=== PATIENT | female | born 1980 | race Caucasian/White ===

== ENCOUNTER 2016-10-15 22:35 | Emergency (ER) | payer SELFPAY ==
[~2016-10-15] VITALS: Ht 175.3 cm; Wt 99.8 kg
[~2016-10-15 22:35] MED LIST: ALPR2TAB2 PO
--- NOTE | 2016-10-15 22:49 | PHYS DOC ---
Past History Past Medical History: Bipolar, Other Past Surgical History: Cholecystectomy, Other Smoking: Greater than 1 pack/day Alcohol Use: Occasionally Drug Use: Marijuana Adult General HPI HPI Patient is a 36 year old F who presents with right shoulder, chest pain, head and neck pain. Patient states she woke up from a nap this afternoon and developed severe right shoulder pain with neck pain and chest pain. Patient called the nurse hotline who told to call emergency room due to her cardiac history. Patient states she's had a history of 2 heart attacks however has never had stents or bypass surgery. Patient does admit to smoking and hypertension. Patient denies any history of DVTs or PEs. Patient denies any fevers. Patient denies any nausea/vomiting/diarrhea. Patient has no other complaints. Review of Systems Review of Systems GEN: Denies fevers, chills, sweats HEENT: Neck pain CV: chest pain RESP: Denies shortness of air, cough GI: Denies n/v/d NEURO: Denies confusion, dizziness MSK: Right shoulder pain Allergies Allergies Allergies Coded Allergies Type Severity Reaction Last Updated Verified No Known Drug Allergies 01/23/15 No Physical Exam Physical Exam GEN.: No apparent distress. Alert and oriented. HEENT: Head is normocephalic, atraumatic NECK: Supple. LUNGS: CTAB. HEART: RRR, S1, S2 present. Peripheral pulses intact ABDOMEN: Soft, nontender. Positive bowel sounds. EXTREMITIES: Without any cyanosis, positive tender to palpation right shoulder with decreased range of motion secondary to pain NEUROLOGIC: Normal speech, normal tone PSYCHIATRIC: Normal affect, normal mood. SKIN: No ulcerations EKG EKG 2301: EKG shows normal sinus rhythm rate of 89 no STEMI [] Radiology/Procedures Radiology/Procedures Chest x-ray NAD X-ray right shoulder no obvious fracture CTA head and neck: IMPRESSION: No evidence of occlusion of the vertebral or carotid arteries. Limited exam secondary to contrast bolus timing with venous contamination. Limited assessment of intracranial vessels secondary to contrast bolus timing with venous contamination. Proximal MCA and AGNES appears patent. If there is clinical concern for stroke MRI could better evaluate given the limitations. There is some groundglass opacity and regions of air trapping within the bilateral lungs. The groundglass opacity could be from hypoventilatory changes although mild edema or pneumonitis is also possible. Electronically signed by: Rock Matthew MD (10/16/2016 12:54 AM) [facility] [] Course & Med Decision Making Course & Med Decision Making Pertinent Labs and Imaging studies reviewed. (See chart for details) ED course: Patient was seen and examined emergency room the cardiac workup was done along with a x-ray of the right shoulder and a CT angiogram of the head and neck 0003: On reexamination the patient is protecting with her right arm in no acute distress. Patient states her pain is gotten better. Updated patient on lab work and x-ray of the chest and shoulder. Awaiting CT results and if negative will discharge home. 0104: Updated patient on CT results who is ready to go home and stable for discharge. MDM: After reviewing the chart, CC/HPI/PMH, physical exam, [lab results], [ radiological results], I do not believe the patient has emergent medical condition warranting further workup and admission at this time. Do not believe the patient have an acute NH (HEART score 2), PE (Perc neg), and low clinical suspicion for acute thoracic aortic dissection. I believe the patient is stable for discharge and can follow up as an outpatient for further cardiac evaluation. Patient is comfortable this plan. Additional verbal discharge instructions were provided to the patient and that if symptoms get worse or any new symptoms arise that are worrisome to the patient she is to return to the emergency room immediately [] Dragon Disclaimer Dragon Disclaimer This chart was dictated in whole or in part using Voice Recognition software in a busy, high-work load, and often noisy Emergency Department environment. It may contain unintended and wholly unrecognized errors or omissions. Departure Departure: Impression: Primary Impression: Right shoulder pain Additional Impressions: Chest pain Headache Neck pain Disposition: 01 HOME, SELF-CARE Condition: IMPROVED Referrals: JIMMY SIMS (PCP) Patient Instructions: Chest Pain (Nonspecific), [id number] Additional Instructions: Please follow up with your family physician in the next one to 2 days Problem Qualifiers VIET ESQUIVEL DO Oct 15, 2016 22:49
[2016-10-15] MEDS ORDERED: CONTRAST GIVEN MC PRN (23:00)
[2016-10-15] MEDS ORDERED: IOHEXOL 300 MG/ML 75 ML VIAL. IV ONE (23:00)
[2016-10-15 23:03] VITALS: BP 158/102
[2016-10-15 23:14] LABS: BASO # 0.1 x10^3/uL (0.0-0.2); BASO % 1 % (0-3); EOS # 0.1 x10^3/uL (0.0-0.7); EOS % 1 % (0-3); HEMATOCRIT 42.6 % (36.0-47.0); HEMOGLOBIN 14.8 g/dL (12.0-15.5); LYMPH # 3.7 x10^3/uL (1.0-4.8); LYMPH % 44 % (24-48); MEAN CORPUSCULAR HEMOGLOBIN 31 pg (25-35); MEAN CORPUSCULAR HGB CONC 35 g/dL (31-37); MEAN CORPUSCULAR VOLUME 88 fL (79-100); MONO # 0.6 x10^3/uL (0.0-1.1); MONO % 7 % (0-9); NEUT % 48 % (31-73); PLATELET COUNT 229 x10^3/uL (140-400); RED BLOOD COUNT 4.83 x10^6/uL (3.50-5.40); RED CELL DISTRIBUTION WIDTH 13.2 % (11.5-14.5); WHITE BLOOD COUNT 8.5 x10^3/uL (4.0-11.0)
[2016-10-15 23:26] LABS: ALBUMIN 3.9 g/dL (3.4-5.0); ALBUMIN/GLOBULIN RATIO 1.1 (1.0-1.7); CALCIUM 8.9 mg/dL (8.5-10.1); CREATININE 0.9 mg/dL (0.6-1.0); GFR 70.1; POTASSIUM 3.7 mmol/L (3.5-5.1); TOTAL BILIRUBIN 0.6 mg/dL (0.2-1.0); TOTAL PROTEIN 7.6 g/dL (6.4-8.2)
--- NOTE | 2016-10-16 00:58 | RAD ---
INDICATION: Woke up this morning with severe headache, started having right neck and shoulder pain radiating down right arm with right hand numbness x 4-5 hours. COMPARISON: None. TECHNIQUE: Axial CT images obtained through the head and neck arterial vasculature with intravenous contrast. Three-dimensional images processed. Estimates of carotid stenosis based on criteria that correlate with NASCET. One or more of the following individualized dose reduction techniques were utilized for this examination: 1. Automated exposure control; 2. Adjustment of the mA and/or kV according to patient size; 3. Use of iterative reconstruction technique. FINDINGS: Limited examination secondary to venous contamination from contrast bolus timing. Vertebral arteries are grossly patent. Common carotid arteries grossly patent. Internal carotid arteries grossly patent. Proximal external carotid arteries grossly patent. Basilar artery patent. Distal internal carotid arteries patent. Bilateral proximal MCA and AGNES patent. Poorly seen distally Difficult evaluation of [employer]IST[employer] secondary to venous contamination in the region. There are some scattered prominent lymph nodes within the neck. There is some regions of air trapping and groundglass opacity in the bilateral lungs. IMPRESSION: No evidence of occlusion of the vertebral or carotid arteries. Limited exam secondary to contrast bolus timing with venous contamination. Limited assessment of intracranial vessels secondary to contrast bolus timing with venous contamination. Proximal MCA and AGNES appears patent. If there is clinical concern for stroke MRI could better evaluate given the limitations. There is some groundglass opacity and regions of air trapping within the bilateral lungs. The groundglass opacity could be from hypoventilatory changes although mild edema or pneumonitis is also possible. Electronically signed by: Rock Matthew MD (10/16/2016 12:54 AM) [facility]
[2016-10-16 01:09] LABS: U PREG PATIENT NEGATIVE (NEG)
--- NOTE | 2016-10-16 05:27 | EKG ---
[address] [address] Test Date: 2016-10-15 Test Time: 22:58:32 Pat Name: ALEXIS FRENCH Department: Room: Gender: F [employer] Advisor: DAMIEN : 1980 Requested By: VIET ESQUIVEL Order Number: [id number] Reading MD: Measurements Intervals [place] Rate: 89 P: 29 AR: 136 QRS: -10 QRSD: 84 T: 42 QT: 368 QTc: 454 Interpretive Statements SINUS RHYTHM LEFTWARD AXIS NON SPECIFIC T ABNORMALITY RI6.01 Unconfirmed report No previous ECG available for comparison
--- NOTE | 2016-10-16 08:10 | RAD ---
Indication shoulder pain. 2 AP views of the right shoulder as well as a Y view were obtained. No bony abnormality is seen
--- NOTE | 2016-10-16 08:12 | RAD ---
Indication chest pain. A single view of the chest was obtained. No prior imaging of the chest is available. The heart and pulmonary vessels appear normal. The mediastinum has a normal appearance. The lungs are clear. Bony structures appear grossly intact. IMPRESSION: No acute or focal process is seen in the chest
== END 2016-10-16 01:22 | disposition home or self-care (01) ==
LOC: ER 22:35
DX: M25.511 Pain in right shoulder (principal); M54.2 Cervicalgia; R51 Headache; R07.9 Chest pain, unspecified; I10 Essential (primary) hypertension; F17.200 Nicotine dependence, unspecified, uncomplicated; F12.10 Cannabis abuse, uncomplicated
CPT/HCPCS: 36415; 70496; 70498; 71010; 73030; 80053; 81025; 84484; 85027; 93005; 99285; Q9967